=== PATIENT | male | born 1945 | race Caucasian/White ===

== ENCOUNTER → 2018-04-06 | Outpatient (CLI) | payer MEDICARE ==
--- NOTE | 2018-04-06 14:37 | CONS ---
CONSULTATION DATE OF SERVICE: 04/06/2018 A 72-year-old gentleman who presented in sleep center for possible obstructive sleep apnea-hypopnea syndrome. The patient usual sleep schedule from 10:00 p.m. until 6:00 a.m. without any significant problem with falling asleep. He does have a TV in bedroom. He sleeps usually on the side position with his with loud snoring, and witnessed episodes of changes of breathing during the sleep and snorting. According to his , the patient wakes up many times during the night, but usually he does not need to go to the bathroom at night. No history of hypnagogic hallucinations, sleep paralysis or cataplexy. [place] Sleepiness Scale is 2. PAST MEDICAL HISTORY: Positive for hyperlipidemia, acid reflux, nasal fracture. PAST SURGICAL HISTORY: Two nasal surgeries, tonsillectomy. MEDICATIONS: Omeprazole, atorvastatin, cetirizine, aspirin, vitamin supplements. SOCIAL HISTORY: Positive for smoking in the past, quit about 50 years ago. Alcohol consumption occasional. FAMILY HISTORY: His father had heart attack at 92. PHYSICAL EXAM: A 72-year-old gentleman without distress. BP 144/93, HR 85, RR 16, height 5 feet 8 inches, weight 163, BMI 24.7. Neck 14-1/2 inches in circumference. Temperature 97.3, oxygen saturation on room air 98%. Oropharynx low position of soft palate. Nasal septum deviation. Some restriction of nasal breathing. NECK: Supple, no JVD. Thyroid is not palpable. LUNGS: Clear to percussion and to auscultation. Good air exchange. No wheezing or rhonchi. HEART: S1, S2 regular. No murmurs, gallops, or rubs. ABDOMEN: Soft and nontender. Bowel sounds are present. No organomegaly IMPRESSION: 1. Snoring, witnessed episodes of snorting and episodes of stopped breathing during the sleep by his , small oropharyngeal air space, restriction of nasal breathing, obstructive sleep apnea-hypopnea syndrome. 2. History of nasal fracture and nasal septum deviation. 3. Acid reflux. 4. Hyperlipidemia. 5. Status post tonsillectomy. PLAN: 1. Polysomnography for evaluation of patient's breathing during sleep. 2. CPAP/BiPAP titration if sleep study confirms obstructive sleep apnea-hypopnea syndrome. 3. Preferable position during sleep on the side. 4. No driving if patient feels any sleepiness. 5. I will see patient for follow up visit to explain results of testing and following plan. Sergio Oneill MD, PhD, FAASM Diplomat of [employer] [employer] [employer] Supervisor [facility] [place] MMODL / [place]: [id number] /
== END | disposition home or self-care (01) ==
LOC: SLEEP 13:30
PROVIDERS: ATTEND Internal Medicine
DX: G47.33 Obstructive sleep apnea (adult) (pediatric) (principal); M27.8 Other specified diseases of jaws; J34.2 Deviated nasal septum; K21.9 Gastro-esophageal reflux disease without esophagitis; E78.5 Hyperlipidemia, unspecified; Z90.89 Acquired absence of other organs; Z79.899 Other long term (current) drug therapy; Z87.81 Personal history of (healed) traumatic fracture; Z79.82 Long term (current) use of aspirin; Z87.891 Personal history of nicotine dependence
CPT/HCPCS: 99211

== ENCOUNTER → 2018-07-05 | Outpatient (CLI) | payer MEDICARE, OTHER ==
--- NOTE | 2018-07-05 15:11 | SFUN ---
SLEEP CENTER FOLLOW UP NOTE DATE OF SERVICE: 07/05/2018 72-year-old gentleman has been followed in Sleep Center for treatment of obstructive sleep apnea-hypopnea syndrome. Recently patient has had sleep studies which showed severe obstructive sleep apnea with apnea-hypopnea index 43. CPAP titration showed that respiration was under control with CPAP at 10 cm of water. Subsequently, patient received his CPAP unit and today he came for followup visit 1st time while he started to use his CPAP. He likes his machine. No significant problem with the machine. Sometimes he has a little irritation from his full face mask. Otherwise, he is sleeping better with the machine. No snoring and feels better during the day. [place] Sleepiness Scale is 3. I checked his CPAP unit. CPAP pressure 10 cm of water. Leak is 25 L/minutes which is acceptable with full-face mask, usage 30/30 nights for more than 4 hours, average 9.1 hours per night. Apnea-hypopnea index only 2.2 per hour which is totally perfect. [place] Sleepiness Scale today is 3. MEDICATIONS: Omeprazole, atorvastatin, tetrazine, aspirin, vitamins. PHYSICAL EXAM: GENERAL Patient in no distress. VITAL SIGNS BP 141/77, HR 68, RR 15, weight 165.2, temperature 97.6. HEENT PERRLA, EOMI, evaluation of oropharynx showed extremely low position of soft palate. NECK Supple, no JVD. Thyroid is not palpable. LUNGS Clear to percussion and to auscultation. Good air exchange. No wheezing or rhonchi. HEART S1, S2 regular. No murmurs, gallops, or rubs. ABDOMEN Soft and nontender. Bowel sounds are present. No organomegaly appreciated. EXTREMITIES No clubbing or cyanosis. [employer]PORATE [employer]OR [employer]OURCES Awake, alert, and oriented X3. Cranial nerves 2 to 7 intact. There is no fasciculation or atrophy. noted. No focal deficits observed. IMPRESSION: 1. Severe obstructive sleep apnea-hypopnea syndrome on full control with CPAP at 10 cm of water. Patient demonstrated 100% compliance with treatment benefitting from treatment. 2. Acid reflux. 3. History of nasal fracture, nasal septum deviation. 4. Hyperlipidemia. 5. Status post tonsillectomy. PLAN: 1. Patient will continue to use CPAP equipment every night for the whole night. 2. Watching weight. 3. Sleep hygiene with regular time in bed for at least 8 hours. 4. No driving if feeling sleepiness. 5. We will maintain prescription for all necessary CPAP supplies including mask, tube, filters. 6. Followup visit in about 10 months. Thank you very much for allowing me to participate in management of your patient. Sincerely, Sergio Oneill MD, PhD, FAASM Diplomat of [place] [employer] [place] [employer] Personnel Manager of [facility] [place] MMODL / [place]: [id number] /
== END | disposition home or self-care (01) ==
LOC: SLEEP 13:30
PROVIDERS: ATTEND Internal Medicine
DX: G47.33 Obstructive sleep apnea (adult) (pediatric) (principal); K21.9 Gastro-esophageal reflux disease without esophagitis; E78.5 Hyperlipidemia, unspecified; Z90.49 Acquired absence of other specified parts of digestive tract; Z99.89 Dependence on other enabling machines and devices; Z79.899 Other long term (current) drug therapy; Z79.82 Long term (current) use of aspirin